=== PATIENT | female | born 1970 | race Caucasian/White ===

== ENCOUNTER 2016-12-29 07:27 | Day surgery (SDC) | payer OTHER ==
[2016-12-29] VITALS (9 sets, daily range): BP systolic 94–120; BP diastolic 56–81; PULSE 56–78; RESP 11–22; Ht 154.9 cm; Wt 59.5 kg
[~2016-12-29] VITALS: Ht 154.9 cm; Wt 59.5 kg
[~2016-12-29 07:27] MED LIST: BUPIVACAINE 0.5%/EPI (SDV) 30 ML INJ ONE; GENTAMICIN 80 MG INJ ONE; SEVOFLURANE 15 MIN ONE
--- NOTE | 2016-12-29 07:39 | HPN ---
Date/Time of Note Date/Time of Note DATE: 12/29/16 TIME: 07:39 Interval H&P Admission Note Pt. seen H&P reviewed: No system changes CRISTIANA RIVERA MD Dec 29, 2016 07:39
[2016-12-29] MEDS ORDERED: BUPIVACAINE LIPOSOME/PF 266 MG/20 ML VIAL INFIL SCH (08:00)
[2016-12-29] MEDS ORDERED: POLYMYXIN/BACITRACIN 1L IRRIG IRR ONE (08:04)
[2016-12-29] MEDS ORDERED: EPINEPHrine 1 MG/ML 30 ML INJ INJ ONE (08:04)
[2016-12-29] MEDS ORDERED: BUPR300T48 PO (08:10)
[2016-12-29] MEDS ORDERED: METO25TA7 PO (08:10)
[2016-12-29] MEDS ORDERED: MIDAZOLAM 1 MG/ML 2 ML INJ ONE (08:22)
[2016-12-29] MEDS ORDERED: MEPERIDINE 25 MG INJ IV PRN (09:30)
[2016-12-29] MEDS ORDERED: DIPHENHYDRAMINE 50 MG INJ IV PRN (09:30)
[2016-12-29] MEDS ORDERED: morphine (1 MG/ML) 10ML SYRINGE IV PRN (09:30)
[2016-12-29] MEDS ORDERED: ONDANSETRON 4 MG INJ IV PRN ×2 (09:30→12:00)
[2016-12-29] MEDS ORDERED: FENTAnyl 50 MCG/ML VIAL IV PRN (09:30)
[2016-12-29] MEDS ORDERED: SODIUM CL BACTERIOSTATIC 30 ML INJ ONE (10:14)
[2016-12-29] MEDS ORDERED: CEFAZOLIN 2 GM/50 ML (PMX) 50 ML IVPB ONE (11:30)
[2016-12-29] MEDS ORDERED: CEFAZOLIN 1 GM INJ ONE (11:41)
[2016-12-29] MEDS ORDERED: LIDOCAINE 2% (SDV) 5 ML INJ ONE (11:41)
[2016-12-29] MEDS ORDERED: PROPOFOL 20 ML ONE (11:41)
[2016-12-29] MEDS ORDERED: ONDANSETRON 4 MG INJ ONE (11:42)
[2016-12-29] MEDS ORDERED: morphine 2 MG INJ IV PRN (12:00)
[2016-12-29] MEDS ORDERED: HYDROCODONE/APAP (5/325) TAB PO PRN (12:00)
--- NOTE | 2016-12-29 12:04 | OPR ---
Date/Time of Note Date/Time of Note DATE: 12/29/16 TIME: 11:59 Operative Report Free Text/Dictation Plastic Surgery Operative Report Preoperative diagnosis: macromastia and cervicalgia Postoperative diagnosis: same Procedure:bilateral breast reduction Surgeon: bipin Lozada.:n/a Anesthesia:general EBL:15cc IV fluids:per flow sheet Findings:n/a Complications:none Dispo:home Indications for procedure:46 yo F presents for a bilateral breast reduction. We discussed the risks, benefits, and alternatives of performing this procedure including the risks of bleeding, infection, wound healing problems, changes in nipple sensation, partial or total nipple necrosis, asymmetry, fat necrosis, seroma, and for revision. The patient states that she understands these risks and would like to proceed with the procedure. All questions were answered, no guarantees were given with regards the outcome of this procedure Description of procedure: Preoperatively, with the patient in the sitting position, a bilateral Griggs pattern reduction mammoplasty with vertical limbs of 8.5 cm and pedicle width of 9 cm was marked. The patient was taken to the operating room at [facility] where general anesthesia was induced. Next, she was prepped and draped in the usual sterile fashion. First, the 42 mm areola marker was placed around the each areola and total of 60cc of a dilute epinephrine solution was injected into the planned area of de- epithelialization in each breast. The pedicles were then de-epithelialized with the 10 blade and scissors. Attention was then turned to the right breast where the incision around the pedicle was deepened with the peak plasma blade. Next, the remainder of the incisions were made with the peak plasma blade, and a medial flap was developed. A lateral flap was then developed with the plasma blade as well, and then the medial and lateral dissections were joined superiorly. The incisions around the pedicle were deepened to the level of the chest wall, taking special care to leave a fascial layer over the chest wall to preserve sensation, and then the tissue intervening between the flaps and pedicle was excised. The breast was irrigated with antibiotic irrigation, hemostasis was achieved with the bipolar cautery, and then the breast was towel clipped closed. Attention was then turned to the contralateral breast where a similar procedure was carried out. The pedicle was incised, and then medial and lateral flaps were elevated, and then the dissections were joined superiorly. The tissue between the pedicle and the flaps was excised taking special care to leave a layer of fascia over the chest wall. The breast was irrigated with antibiotic irrigation, hemostasis was achieved with the bipolar cautery, and then the breast was towel clipped closed. Excision from the right side was 685cc, excision from the left side was 650cc. The patient was sat up on the operating room table, symmetry was good, and therefore the patient was sat back down. A total of 60 mL of a dilute Exparel solution were then injected into the breasts. A #15 Jared drain was inserted into each breast through a stab incision laterally and was secured with 2-0 nylon suture. Next, the incisions were closed with a deep layer of 3-0 Vicryl sutures, 4-0 Monocryl suture, and then skin glue. The nipples were pink and viable at the completion of the case. The patient tolerated the procedure well, there were no complications, she'll follow up in 1 week CRISTIANA RIVERA MD Dec 29, 2016 12:04
[2016-12-29] MEDS ORDERED: METOCLOPRAMIDE 10 MG INJ IV ONE (15:00)
== END 2016-12-29 19:00 | disposition home or self-care (01) ==
LOC: SDS 07:27
PROVIDERS: ATTEND Surgery Plastic and Reconstructive Surgery
DX: N62 Hypertrophy of breast (principal); M54.2 Cervicalgia; E78.5 Hyperlipidemia, unspecified; I10 Essential (primary) hypertension; E66.01 Morbid (severe) obesity due to excess calories; Z68.24 Body mass index [BMI] 24.0-24.9, adult
CPT/HCPCS: 19318; 84703; 88307; C9290; J0171; J0690; J1580; J2175; J2250; J2270; J2405; J2765; J3010; Z7512; Z7610